=== PATIENT | male | born 1945 | race Caucasian/White ===

== ENCOUNTER 2020-02-07 09:31 | Outpatient (REF) | payer OTHER, SELFPAY ==
[2020-02-07 10:48] LABS: Alanine Aminotransferase 22 U/L (0-40); Alkaline Phosphatase 105 U/L (39-117); Anion Gap 10 (12-20); Aspartate Amino Transferase 14 U/L (5-37); Bilirubin Total 0.3 mg/dL (0.0-1.0); Blood Urea Nitrogen 17 mg/dL (9-16); Calcium 8.7 mg/dL (8.4-10.2); Carbon Dioxide 28 mmol/L (22-29); Chloride 109 mmol/L (96-108); Cholesterol 179 mg/dL; Estimated Glomerular Filt Rate > 60; Glucose Fasting 91 mg/dL (60-99); HDL Cholesterol 31 mg/dL; LDL Cholesterol Calculated 136 mg/dl; Sodium 143 mmol/L (135-145); Total Protein 6.9 g/dL (6.5-8.0); Triglycerides 60 mg/dL
[2020-02-07 13:30] LABS: TSH reflex Free T4 7.19 mIU/mL (0.32-4.0)
[2020-02-07 14:05] LABS: Free T4 (Free Thyroxine) 1.17 ng/dL (0.71-1.85)
[2020-02-12 19:09] LABS: Vitamin D 25-OH, D2 <4 ng/mL; Vitamin D 25-OH, D3 57 ng/mL; Vitamin D 25-OH, Total 57 ng/mL (30-100)
== END 2020-02-07 09:32 | disposition home or self-care (01) ==
LOC: HO.LAB 09:31
PROVIDERS: PCP Internal Medicine; Visit Provider Internal Medicine
DX: E03.9 Hypothyroidism, unspecified (principal); E55.9 Vitamin D deficiency, unspecified; I10 Essential (primary) hypertension
CPT/HCPCS: 80053; 80061; 82306; 84439; 84443

== ENCOUNTER → 2020-03-26 13:17 | Outpatient (BNVA) | payer OTHER, SELFPAY | PROVIDERS: PCP Internal Medicine; Visit Provider Urology | DX: N39.0 Urinary tract infection, site not specified (principal) | CPT/HCPCS: 51798; 99202 ==

== ENCOUNTER 2020-07-16 11:49 | Outpatient (REF) | payer OTHER, SELFPAY ==
[2020-07-16 13:09] LABS: MANUAL DIFF FLAG NO
[2020-07-16 13:19] LABS: Basophils Percent Auto 0.3 % (0-2); Eosinophils Absolute Auto 0.2 X10*3/uL (0.0-0.4); Eosinophils Percent Auto 2.7 % (0-4); Hematocrit 29.3 % (42-52); Hemoglobin 9.2 g/dl (14.0-18.0); Imm Gran Abs Auto 0.02 X10*3/uL (0.00-0.03); Imm Gran Pct Auto 0.3 % (0.0-0.4); Lymphocytes Absolute Auto 2.3 X10*3/uL (1.2-4.9); Lymphocytes Percent Auto 33.6 % (20-40); Mean Corpuscular HGB Conc 31.4 g/dl (31.0-36.0); Mean Corpuscular Hemoglobin 27.9 pg (27.0-33.0); Mean Corpuscular Volume 88.8 fL (80-98); Mean Platelet Volume 11.7 fL (9.4-12.4); Monocytes Absolute Auto 0.5 X10*3/uL (0.1-1.2); Monocytes Percent Auto 7.9 % (2-11); Neutrophils Absolute Auto 3.7 X10*3/uL (2.0-8.3); Neutrophils Percent Auto 55.2 % (45-73); Platelet Count 343 X10*3/uL (160-400); Red Cell Distribution Width 15.7 % (11.0-16.0); White Blood Count 6.7 X10*3/uL (4.8-10.8)
[2020-07-16 13:48] LABS: Alanine Aminotransferase 18 U/L (0-40); Alkaline Phosphatase 101 U/L (39-117); Anion Gap 11 (12-20); Aspartate Amino Transferase 15 U/L (5-37); Bilirubin Total 0.4 mg/dL (0.0-1.0); Blood Urea Nitrogen 17 mg/dL (9-16); Calcium 9.1 mg/dL (8.4-10.2); Carbon Dioxide 27 mmol/L (22-29); Chloride 108 mmol/L (96-108); Cholesterol 163 mg/dL; Estimated Glomerular Filt Rate > 60; Glucose Fasting 99 mg/dL (60-99); HDL Cholesterol 38 mg/dL; LDL Cholesterol Calculated 108 mg/dl; Potassium 4.1 mmol/L (3.3-5.1); Sodium 142 mmol/L (135-145); Total Protein 7.1 g/dL (6.5-8.0); Triglycerides 87 mg/dL
[2020-07-16 14:04] LABS: TSH reflex Free T4 1.23 uIU/mL (0.32-4.0)
[2020-07-19 13:22] LABS: Vitamin D 25-OH, D2 <4 ng/mL; Vitamin D 25-OH, D3 58 ng/mL; Vitamin D 25-OH, Total 58 ng/mL (30-100)
[2020-07-20 19:46] LABS: Levetiracetam Keppra 41.6 mcg/mL (12.0-46.0)
== END 2020-07-16 11:50 | disposition home or self-care (01) ==
LOC: HO.LAB 11:49
PROVIDERS: PCP Internal Medicine; Visit Provider Internal Medicine
DX: D64.9 Anemia, unspecified (principal); E55.9 Vitamin D deficiency, unspecified; E03.9 Hypothyroidism, unspecified; E78.5 Hyperlipidemia, unspecified; I10 Essential (primary) hypertension; R56.9 Unspecified convulsions
CPT/HCPCS: 36415; 80053; 80061; 80177; 82306; 84443; 85025

== ENCOUNTER 2020-10-18 10:02 | Outpatient (REF) | payer OTHER, SELFPAY ==
[2020-10-18 10:55] LABS: Hemoglobin 10.8 g/dl (14.0-18.0); Imm Gran Abs Auto 0.01 X10*3/uL (0.00-0.03); Imm Gran Pct Auto 0.2 % (0.0-0.4)
[2020-10-18 10:57] LABS: Basophils Percent Auto 0.4 % (0-2); Eosinophils Absolute Auto 0.2 X10*3/uL (0.0-0.4); Eosinophils Percent Auto 3.9 % (0-4); Hematocrit 36.5 % (42-52); Lymphocytes Absolute Auto 2.1 X10*3/uL (1.2-4.9); Mean Corpuscular HGB Conc 29.6 g/dl (31.0-36.0); Mean Corpuscular Hemoglobin 22.1 pg (27.0-33.0); Mean Corpuscular Volume 74.6 fL (80-98); Mean Platelet Volume 10.9 fL (9.4-12.4); Monocytes Absolute Auto 0.3 X10*3/uL (0.1-1.2); Monocytes Percent Auto 5.9 % (2-11); Neutrophils Absolute Auto 2.5 X10*3/uL (2.0-8.3); Neutrophils Percent Auto 49.6 % (45-73); Platelet Count 330 X10*3/uL (160-400); Red Blood Count 4.89 X10*6/uL (4.60-5.80); Red Cell Distribution Width 22.9 % (11.0-16.0); White Blood Count 5.1 X10*3/uL (4.8-10.8)
[2020-10-18 11:41] LABS: Alanine Aminotransferase 12 U/L (0-40); Albumin Level 4.2 g/dL (3.5-5.0); Alkaline Phosphatase 118 U/L (39-117); Anion Gap 12 (12-20); Aspartate Amino Transferase 15 U/L (5-37); Bilirubin Total 0.3 mg/dL (0.0-1.0); Blood Urea Nitrogen 12 mg/dL (9-16); Calcium 9.7 mg/dL (8.4-10.2); Carbon Dioxide 26 mmol/L (22-29); Chloride 109 mmol/L (96-108); Cholesterol 152 mg/dL; Estimated Glomerular Filt Rate > 60; Glucose Fasting 98 mg/dL (60-99); HDL Cholesterol 35 mg/dL; LDL Cholesterol Calculated 104 mg/dl; Potassium 4.1 mmol/L (3.3-5.1); Sodium 143 mmol/L (135-145); Total Protein 7.4 g/dL (6.5-8.0); Triglycerides 69 mg/dL
[2020-10-18 11:49] LABS: Thyroid Stimulating Hormone 0.38 uIU/mL (0.32-4.0)
== END 2020-10-18 10:03 | disposition home or self-care (01) ==
LOC: HO.LAB 10:02
PROVIDERS: PCP Internal Medicine; Visit Provider Internal Medicine
DX: E78.5 Hyperlipidemia, unspecified (principal); R56.9 Unspecified convulsions; E03.9 Hypothyroidism, unspecified
CPT/HCPCS: 36415; 80053; 80061; 80177; 84443; 85025

== ENCOUNTER → 2021-01-21 15:09 | Outpatient (BNVA) | payer OTHER, SELFPAY | PROVIDERS: Visit Provider Urology | DX: Z13.89 Encounter for screening for other disorder (principal) | CPT/HCPCS: Q3014 ==

== ENCOUNTER → 2021-02-25 12:54 | Outpatient (BNVA) | payer OTHER, SELFPAY | PROVIDERS: Visit Provider Urology | DX: Z13.89 Encounter for screening for other disorder (principal) | CPT/HCPCS: Q3014 ==

== ENCOUNTER → 2021-02-28 09:42 | Outpatient (BNVA) | payer OTHER, SELFPAY | PROVIDERS: PCP Internal Medicine; Visit Provider Urology | DX: N40.1 Benign prostatic hyperplasia with lower urinary tract symptoms (principal); R33.9 Retention of urine, unspecified; R32 Unspecified urinary incontinence | CPT/HCPCS: 52000; 99212 ==

== ENCOUNTER 2021-03-31 13:38 | Day surgery (SDC) | payer OTHER, SELFPAY ==
--- NOTE | ~2021-03-31 | FL_ITS ---
EXAMINATION: Intraoperative fluoroscopy CLINICAL INFORMATION: Right kidney stone COMPARISON: Renal ultrasound 11/30/2019 TECHNIQUE: Intraoperative fluoroscopy was provided for use by Dr. Espana. A total of 1 image was saved to PACS. A radiologist was not present during imaging. Today's dictation is only for administrative purposes to document intraoperative fluoroscopic usage. TOTAL FLUOROSCOPIC TIME: 56 seconds FL/FL guidance in OR FINDINGS~\^^ Intraoperative fluoroscopy provided for use by Dr. Espana. Please see operative note for detailed findings.
[2021-03-31 14:05] VITALS: BMI 29.2
--- NOTE | 2021-03-31 14:36 | P.CONAN_ITS ---
HPI - Anesthesia Eval Consult details Narrative: 75 M for cystoscopy [facility] Active Problems Active Problems: All Active Problems (Updated 02/28/21 @ 11:11 by Fernando Espana MD) Incomplete emptying of bladder due to benign prostatic hyperplasia (Acute) Gross hematuria (Acute) Urinary incontinence (Acute) Rectal bleeding (Acute) Hospital discharge follow-up (Acute) Conjunctivitis, allergic (Acute) Dyslipidemia (Acute) UTI (urinary tract infection) (Acute) Urinary anomaly (Acute) Seizures (Acute) Hypothyroid (Acute) Lumbar foraminal stenosis (Acute) Myoclonus dystonia (Acute) Hypovitaminosis D (Acute) Essential hypertension (Acute) Bedridden (Acute) Past Medical History Medical History Bedridden Conjunctivitis, allergic Dyslipidemia Essential hypertension Gross hematuria Hospital discharge follow-up Hypovitaminosis D Rectal bleeding Seizures Urinary anomaly Urinary incontinence UTI (urinary tract infection) Family History Family History Father Diabetes Mother Diabetes Family history of problems with anesthesia: No Surgical History Surgical History No pertinent past surgical history History of Problems with Anesthesia: Unobtainable (No prior Anesthesia ) Social History Social History Housing: Apartment Alcohol intake: never Patient Tobacco Use Status: Never used Tobacco e-Cigarette/Vaping Use: Never Used Second Hand Smoke Exposure: No service: No Current occupational status: disabled Meds Allergies Allergy/AdvReac Type Severity Reaction Status Date / Time No Known Allergies Allergy Verified 02/28/21 10:12 Exam Exam Date and Time: March 31, 2021 1436 Height,Weight and Vital Signs: Height 5 ft 2 in Weight 72.575 kg Airway Mallampati Class: IV TM Dist: >3cm Neck ROM: Full Loose/Missing/Broken Teeth: Yes Heart: rrr Lungs: bl breath sounds Assessment and Plan Assessment Anesthesia Assessment: Anesthesia Plan Discussed (With sister who is health care proxy ) Final Anesthetic Review Family History of Problems with Anesthesia: No History of Problems with Anesthesia: Unobtainable (No prior Anesthesia ) NPO: Yes ASA Class: III Final Preanesthetic Review: Meds/Allgs Chart Reviewed and Anes Risks/Benef Reviewed (With sister ) Patient Risk: High Procedure Risk: Intermediate Anesthetic Plan Anesthetic Plan: GA Disposition: Standard PACU
[2021-03-31 14:45] VITALS: BP 162/76; PULSE 71; RESP 18; TEMP 36.5; O2SAT 97
--- NOTE | 2021-03-31 16:54 | P.HPSUR_ITS ---
Pre-Procedural Eval Section A Date of Service: 03/31/21 The patient is an INPATIENT: No The History & Physical has been completed within 30 days and I have reviewed it.: No Section B Chief Complaint: gross hematuria,calculus of kidney Details of Present Illness: right proximal ureteric stone. Seen in [facility] with admission and IV rehydration approximately 2 weeks ago. Recommendation for stone intervention with ureteroscopy, laser lithotripsy and stent placement. Consent has been obtained through cyst a as he has developmental delay. Relevant Family History (Specify if Yes): No Relevant Social History: None Present Medications: see Short Stay Collaborative assessment Medical History: No relevant PMH History of Previous Operations: Relevant previous surgery/procedure and date(s) Allergies: Allergies Allergy/AdvReac Type Severity Reaction Status Date / Time No Known Allergies Allergy Verified 02/28/21 10:12 Review of Systems Sugical H&P ROS: Negative: Constitution, Cardiovascular, Respiratory, Neurological, Psychiatric, Hem-Onc, Allergic/Immunologic, Gastrointestinal, Genitourinary, Musculoskeletal, Integumentary, Endocrine and Eyes/Ears/Nose/Throat Exam Surgical H&P Exam: Normal: HEENT, Normal: Heart, Normal: Lungs, Normal: Extremities, Normal: Abdomen, Normal: Skin and Normal: Neurological Plan Diagnosis/Plan: Unchanged ( Cystoscopy, right retrograde, right ureteroscopy with laser lithotripsy and stent placement) I have reviewed the history and physical and performed a pertinent physical examination on my patient. No changes have occurred unless specified.
--- NOTE | 2021-03-31 18:05 | W.PM.OPN ---
Operative Note Operative Note Date of Service: 03/31/21 Narrative: PreOperative Diagnosis: right renal stone Post Operative Diagnosis: right renal stone 1.5 cm Procedure: - cystoscopy, right retrograde - right dilatation of ureteric orifice under fluoroscopy - right ureteroscopy, laser lithotripsy, stone basketing - right stent placement Surgeon: Dr Fernando Espana Anesthesia: General Indications for procedure: 75-year-old mentally delayed male cared for by sister. Presented to [facility] with infected right renal stone before [place]. Here for definitive therapy with ureteroscopy laser lithotripsy and stent placement. Procedure: After informed consent was verified patient was brought to the operating placed in supine position. Anesthesia was administered per protocol. Patient was placed in modified dorsal lithotomy position and prepped and draped in a sterile fashion. Safety pause time-out and side of surgery confirmed. Antibiotics confirmed. 22 Maltese cystoscope was inserted per urethra. Bladder was normal in its entirety. Both ureteric orifices were in normal position. The Right ureteric orifice was cannulated and a retrograde examination was performed. filling defects seen in right renal pelvis . A Sensor guidewire was placed up to the level of the renal pelvis under fluoroscopy. The rigid cystoscope was removed and the inner cannula of ureteric access sheath was used under fluoroscopy to dilate the ureteric orifice. The ureteric access sheath was placed and the inner cannula with access wire removed. The digital flexible ureteral scope was placed. stone was encountered in the right renal pelvis. Using dusting settings with holmium laser the stone was broken into small pieces. Using a Zero tip basket small fragments will be removed. Renal pelvis was irrigated and debris removed. Sensor guidewire placed back into renal pelvis. Ureteric access sheath removed. Twenty-two Maltese cystoscope backloaded over wire and reintroduced into bladder. A 6 Maltese by Twenty-two cm double-J stent was placed into the renal pelvis and bladder under a combination of fluoroscopy and direct visualization. The bladder was emptied. The patient tolerated the procedure well and was extubated in the operating room, and transferred in stable condition to the recovery area. the patient tolerated the procedure well was extubated in operating room transferred in stable condition to the recovery area. Pathology: Stone Drains: 6 Maltese in 22 cm double-J stent
[2021-03-31 18:20] VITALS: BP 150/72; PULSE 74; RESP 17; TEMP 36.2; O2SAT 100
[2021-03-31 18:25] VITALS: BP 159/84; PULSE 79; RESP 16; O2SAT 100
[2021-03-31 18:30] VITALS: BP 162/85; PULSE 79; RESP 16; O2SAT 100
[2021-03-31 18:35] VITALS: BP 172/97; PULSE 81; RESP 18; O2SAT 98
--- NOTE | 2021-03-31 19:03 | PC.NURSE ---
patient sister and caregiver at bedside review of discharge plan. assisted to dress at bedside. transfer 3 person lift to wheelchair.
== END 2021-03-31 19:04 | disposition home or self-care (01) ==
PROVIDERS: PCP Internal Medicine; Visit Provider Urology
PROC: (CPT 52356; principal; 2021-03-31 15:30)
DX: N20.0 Calculus of kidney (principal); R31.0 Gross hematuria; N39.0 Urinary tract infection, site not specified; R33.9 Retention of urine, unspecified; N32.89 Other specified disorders of bladder; I10 Essential (primary) hypertension; E78.5 Hyperlipidemia, unspecified; E55.9 Vitamin D deficiency, unspecified; R56.9 Unspecified convulsions; Z79.899 Other long term (current) drug therapy; R62.50 Unspecified lack of expected normal physiological development in childhood; Z74.01 Bed confinement status
CPT/HCPCS: 52356; C1758; C1769; C1894; C2617; J1100; J2405; J3010; Q9967

== ENCOUNTER 2021-04-28 13:24 | Day surgery (SDC) | payer OTHER, SELFPAY ==
[2021-04-22 14:39] VITALS: BMI 29.2
--- NOTE | 2021-04-23 15:32 | HO.ANESPROP2 ---
Documented by User: Alee Montano NP 04/23/21 15:41 HPI - Anesthesia Eval Consult details Narrative: 75yo M for Right Cystoscopy & Stent Removal+ s/p cyst, etc 03/31/21 with GA-LMA 4 PMFSH Active Problems Active Problems: All Active Problems (Updated 02/28/21 @ 11:11 by Fernando Espana MD) Myoclonus dystonia (Acute) Lumbar foraminal stenosis (Acute) Hypothyroid (Acute) Incomplete emptying of bladder due to benign prostatic hyperplasia (Acute) Gross hematuria (Acute) Urinary incontinence (Acute) Rectal bleeding (Acute) Hospital discharge follow-up (Acute) Conjunctivitis, allergic (Acute) Dyslipidemia (Acute) UTI (urinary tract infection) (Acute) Urinary anomaly (Acute) Seizures (Acute) Hypovitaminosis D (Acute) Essential hypertension (Acute) Bedridden (Acute) Past Medical History Medical History (Updated 02/28/21 @ 11:11 by Fernando Espana MD) Bedridden Conjunctivitis, allergic Dyslipidemia Essential hypertension Gross hematuria Hospital discharge follow-up Hypovitaminosis D Rectal bleeding Seizures Urinary anomaly Urinary incontinence UTI (urinary tract infection) Functional capacity: bed bound Family History Family History Father Diabetes Mother Diabetes Family history of problems with anesthesia: No Surgical History Surgical History (Updated 04/22/21 @ 14:42 by Haydee Sharma RN) Hx of cystoscopy History of Problems with Anesthesia: Unobtainable (No prior Anesthesia ) Social History Social History Housing: Apartment Alcohol intake: never Patient Tobacco Use Status: Never used Tobacco e-Cigarette/Vaping Use: Never Used Second Hand Smoke Exposure: No service: No Current occupational status: disabled Meds Allergies Allergy/AdvReac Type Severity Reaction Status Date / Time No Known Allergies Allergy Verified 02/28/21 10:12 Exam Exam Date and Time: April 23, 2021 1532 Height,Weight and Vital Signs: Height 5 ft 2 in Weight 72.575 kg Pertinent Lab Results Pertinent Lab Results: Laboratory Tests 10/18/20 10/18/20 10:18 10:18 WBC 5.1 Hgb 10.8 L Hct 36.5 L D Plt Count 330 Sodium 143 Potassium 4.1 Chloride 109 H Carbon Dioxide 26 BUN 12 Creatinine 0.92 Narrative Narrative: EKG 02/2021 NSR @ 93 Increased R/S ratio - consider early transition or posterior infarct No change when compared with previous Assessment and Plan Assessment Anesthesia Assessment: Chart Reviewed Final Anesthetic Review Family History of Problems with Anesthesia: No History of Problems with Anesthesia: Unobtainable (No prior Anesthesia ) Documented by User: Lamin Chilel 04/28/21 18:14 HPI - Anesthesia Eval Consult details Narrative: 75yo M for Right Cystoscopy & Stent Removal+ s/p cyst, etc 03/31/21 with GA-LMA 4 Patient is nonverbal , lives with sisters , no HCP record in the chart . Will obtain consent from sister ( NOK) [facility] Past Medical History Medical History (Updated 02/28/21 @ 11:11 by Fernando Espana MD) Bedridden Conjunctivitis, allergic Dyslipidemia Essential hypertension Gross hematuria Hospital discharge follow-up Hypovitaminosis D Rectal bleeding Seizures Urinary anomaly Urinary incontinence UTI (urinary tract infection) Family History Family History Father Diabetes Mother Diabetes Surgical History Surgical History (Updated 04/22/21 @ 14:42 by Haydee Sharma RN) Hx of cystoscopy History of Problems with Anesthesia: No Social History Social History Housing: Apartment Alcohol intake: never Patient Tobacco Use Status: Never used Tobacco e-Cigarette/Vaping Use: Never Used Second Hand Smoke Exposure: No service: No Current occupational status: disabled Meds Allergies Allergy/AdvReac Type Severity Reaction Status Date / Time No Known Allergies Allergy Verified 02/28/21 10:12 Exam Airway Mallampati Class: IV TM Dist: >3cm Neck ROM: Full Loose/Missing/Broken Teeth: Yes Heart: rrr Lungs: bl breath sounds Assessment and Plan Assessment Anesthesia Assessment: Anesthesia Plan Discussed Final Anesthetic Review History of Problems with Anesthesia: No NPO: Yes ASA Class: III Final Preanesthetic Review: Meds/Allgs Chart Reviewed, Consent Obtained/Reviewed (Obtained from NOK ) and Anes Risks/Benef Reviewed Patient Risk: High Procedure Risk: Intermediate Anesthetic Plan Anesthetic Plan: MAC: Disposition: Standard PACU
--- NOTE | 2021-04-28 14:05 | PC.NURSE ---
JASKARAN GUNN IS PATIENTS HEALTH CARE PROXY PER PATIENT PATIENT IS NONVERBAL AND LIVES WITH JASKARAN AND HIS OTHER SISTER KATHLEEN. SHE SAID THERE WAS A [facility]INI CARE PROXY IN THE PAST BUT THE AMBULANCE NEVER GAVE IT BACK. PATIENT WAS TO ARRIVE AT [facility] TODAY AND THE AMBULANCE NEVER SHOWED UP TO PICKUP THE PATIENT. SO JASKARAN AND HER OTHER SISTER BROUGHT THE BEDRIDDEN PATIENT THEMSELVES IN A WHEELCHAIR. HE IS A FULL ASSIST INTO THE BED. PAREDES CATH INTACT AND RIGHT ESTELITA QUISPE KIDNEY BULB INTACT. SMALL AMOUNT YELLOW DRAINAGE. CALLED HIM TO SEE IF THERE IS ANY FURTHER HEALTH PROXY RECORDS AND THERE ARE NOT.
--- NOTE | 2021-04-28 14:10 | PC.NURSE ---
GAVE JASKARAN GUNN THE SISTER A NEW HEALTH CARE PROXY AND DNR PAPERWORK TO TAKE HOME WITH.
[2021-04-28 14:12] VITALS: BP 150/71; PULSE 82; RESP 16; TEMP 36.6; O2SAT 96
[2021-04-28] MEDS: Lactated Ringers 1,000 ML 50 ML IVCONT (15:08)
--- NOTE | 2021-04-28 15:47 | MHC.SHP ---
Pre-Procedural Eval Section A Date of Service: 04/28/21 The patient is an INPATIENT: No Changes since office visit: No Cold of Flu in the past 2 weeks, No New Medical Problems, No Changes in Medication and No Patient answered all questions The History & Physical has been completed within 30 days and I have reviewed it.: Yes Section B Chief Complaint: calculus of kidney Allergies: Allergies Allergy/AdvReac Type Severity Reaction Status Date / Time No Known Allergies Allergy Verified 02/28/21 10:12 Review of Systems Sugical H&P ROS: Negative: Constitution, Cardiovascular, Respiratory, Neurological, Psychiatric, Hem-Onc, Allergic/Immunologic, Gastrointestinal, Genitourinary, Musculoskeletal, Integumentary, Endocrine and Eyes/Ears/Nose/Throat Exam Surgical H&P Exam: Normal: HEENT, Normal: Heart, Normal: Lungs, Normal: Extremities, Normal: Abdomen, Normal: Skin and Normal: Neurological Plan Diagnosis/Plan: Unchanged (Cystoscopy, right stent removal is since unable to perform in office) I have reviewed the history and physical and performed a pertinent physical examination on my patient. No changes have occurred unless specified.
[2021-04-28] MEDS: levoFLOXacin/D5W 500 MG/100 ML PIGGYBACK 100 MG IV (16:02)
--- NOTE | 2021-04-28 16:15 | P.OP_ITS ---
Operative Note Operative Note Date of Service: 04/28/21 Narrative: PreOperative Diagnosis: Right indwelling ureteric stent Post Operative Diagnosis: Right indwelling ureteric stent Procedure: Cystoscopy stent removal Surgeon: Dr Fernando Espana Anesthesia: Sedation Indications for procedure: 75-year-old male. Developmentally delayed. Prior ureteroscopy with laser lith otripsy approximately 3 weeks ago. Presents today for cystoscopy and stent removal. Unable to tolerate in office due to developmental delay. Procedure: After informed consent was verified the patient was brought to the operating room and placed in a supine position. Anesthesia was administered per protocol. The patient was frogleg on the stretcher. Safety pause time-out was performed. Flexible cystoscopy was performed in the stent was seen within the bladder. Using a 4 prong grasper the stent was removed without difficulty. He tolerated procedure well was transferred to the recovery area Pathology: Stent Drains: None
[2021-04-28 16:19] VITALS: BP 104/63; PULSE 78; RESP 11; TEMP 36.7; O2SAT 98
[2021-04-28 16:35] VITALS: BP 120/58; PULSE 82; RESP 14; O2SAT 98
== END 2021-04-28 17:05 | disposition home or self-care (01) ==
PROVIDERS: PCP Internal Medicine; Visit Provider Urology
PROC: (CPT 52310; principal; 2021-04-28 14:00)
DX: N20.0 Calculus of kidney (principal); R62.50 Unspecified lack of expected normal physiological development in childhood; Z87.440 Personal history of urinary (tract) infections; Z66 Do not resuscitate; Z74.01 Bed confinement status
CPT/HCPCS: 52310; J1956; J3010

== ENCOUNTER 2021-05-19 10:00 | Outpatient (REF) | payer MEDICARE, SELFPAY ==
--- NOTE | ~2021-05-19 | US_ITS ---
EXAMINATION: US RETROPERITONEAL LIMITED (RENAL ONLY) CLINICAL INFORMATION: Benign prostatic hyperplasia with lower urinary tract symptoms. Gross hematuria COMPARISON: Renal ultrasound 11/30/2019 and 10/31/2018. X-ray abdomen KUB 02/25/2017. TECHNIQUE: Real-time imaging of the kidneys. Technically difficult study secondary to the patient's immobility. FINDINGS: RIGHT KIDNEY: 10.1 x 5.0 x 5.0 cm (SAG x AP x TRV). The kidney is normal in size, contour, and echogenicity. Renal cortical thickness is normal. There is question of a 1 to 1.7 cm cyst in the midpole. There is question of 2 stones measuring 3 x 5 mm in the upper pole and 3 mm in the midpole. No hydronephrosis. LEFT KIDNEY: 11.1 x 5.0 x 5.0 cm (SAG x AP x TRV). The kidney is normal in size, contour, and echogenicity. Renal cortical thickness is normal. There is question of a 3 mm stone in the lower pole. No focal parenchymal lesions or hydronephrosis. US/US renal BI IMPRESSION: Limited exam. Question small bilateral renal stones and small right renal cyst.
== END 2021-05-19 10:01 | disposition home or self-care (01) ==
LOC: HO.US 10:00
PROVIDERS: PCP Internal Medicine; Visit Provider Urology
DX: N40.1 Benign prostatic hyperplasia with lower urinary tract symptoms (principal); R31.0 Gross hematuria; R33.9 Retention of urine, unspecified
CPT/HCPCS: 76775

== ENCOUNTER → 2021-06-12 10:41 | Outpatient (BNVA) | payer MEDICARE, SELFPAY | PROVIDERS: PCP Internal Medicine; Referring Provider Internal Medicine; Visit Provider Nurse Practitioner | DX: D12.6 Benign neoplasm of colon, unspecified (principal); K62.5 Hemorrhage of anus and rectum | CPT/HCPCS: 99202 ==

== ENCOUNTER → 2021-07-18 14:12 | Outpatient (BNVA) | payer MEDICARE, SELFPAY | PROVIDERS: PCP Internal Medicine; Visit Provider Urology | DX: Z13.89 Encounter for screening for other disorder (principal) ==